=== PATIENT | female | born 1960 ===

== ENCOUNTER 2017-06-21 11:50 | Emergency (ER) | payer OTHER ==
[2017-06-21] MEDS ORDERED: MAG HYDROX/AL HYDROX/SIMETH 30 ML, Lidocaine 2%Visc 15ml 20 MG, PHENobarb/HYOSCY/ATROPI... PO ONE ×3 (12:03)
--- NOTE | 2017-06-21 12:09 | ED Physician Documentation ---
General Adult - HISTORIAN Historian: patient - HPI Stated Complaint: chest pain Chief Complaint: General Adult Onset: hours Timing: still present Severity: moderate Further Comments: yes (Pt is a 56 yo aa female who has been having chest pain since last evening. Pt initially thought that cp was due to heartburn, and she took Tums and other antacids, but without relief. Pt has strong family hx cad, with brothers with FL's in their 50's. Pain remained in central chest and did not radiate. No n/v/diaphoresis. Pt has dx of HTN, but does not take any meds for it. Pt had been rx'd Lisinopril 10 mg po qd at one time. Pt presents with SBP in 180's.) - ROS CONST: no problems EYES/ENT: none CVS/RESP: chest pain GI/: none MS/SKIN/LYMPH: none - PAST HX Past History: hypertension Surgeries/Procedures: hysterectomy, other (orthopedic) Allergies/Adverse Reactions: Allergies Allergy/AdvReac Type Severity Reaction Status Date / Time No Known Drug Allergies Allergy Verified 06/21/17 12:11 Home Medications: Ambulatory Orders Medication Instructions Recorded NK [NK] 06/21/17 - SOCIAL HX Smoking History: cigarettes - FAMILY HX Family History: Yes (brothers with FL's in 50's) - REVIEWED ASSESSMENTS Nursing Assessment Reviewed: Yes Vitals Reviewed: Yes Progress - Progress Progress: GI cocktail improved Famotidine 20 mg IV improved Lisinopril 10 po in ER. d/c instructions: May take [id number] Zantac or Pepcid as directed. Rx Lisinopril 10 mg. Take one by mouth once daily for hypertension. Follow up with primary provider in 1 to 2 weeks about high blood pressure and heartburn. - EKG/XRAY/CT EKG: NSR (HR=85, LVH by voltage) XRAY: chest (neg) ED Results Lab/Radiology - Orders Orders: ED Orders Category Date Time Status Continuous EKG monitoring Q30M Care 06/21/17 12:02 Active Continuous Pulse Oximetry Q30M Care 06/21/17 12:[address] IV Lock 1T Care 06/21/17 12:02 Active CHEST 1 VIEW [RAD] Stat Exams 06/21/17 12:02 Ordered CBC/PLATELET/DIFF Routine Lab 06/21/17 12:05 Received CMP Routine Lab 06/21/17 12:05 Received CREATINE KINASE Routine Lab 06/21/17 12:05 Received TROPONIN I (cTnI) Stat Lab 06/21/17 12:05 Received Mag Hydrox/Al Hydrox/Simeth [Mylanta] 30 ml Med 06/21/17 12:03 Discontinued Lidocaine 2%Visc 15ml [Xylocaine] 20 mg PHENobarb/HYOSCY/ATROPINE/SCOP [] 10 ml PO NOW Oxygen Daily Oxygen 06/21/17 12:15 Ordered EKG WITH COMPARISON Stat Ther 06/21/17 12:02 Ordered General Adult Physical Exam - PHYSICAL EXAM GENERAL APPEARANCE: mild distress EENT: pharynx normal NECK: normal inspection, supple RESPIRATORY: no resp distress, chest non-tender, breath sounds normal CVS: reg rate & rhythm, heart sounds normal ABDOMEN: soft, no organomegaly, normal bowel sounds BACK: normal inspection, no CVA tenderness SKIN: warm/dry, normal color EXTREMITIES: non-tender, normal range of motion, no evidence of injury, no edema NEURO: oriented X3, motor nml, sensation nml Discharge Clincal Impression: GERD (gastroesophageal reflux disease) Qualifiers: Esophagitis presence: without esophagitis Qualified Code(s): K21.9 - Gastro- esophageal reflux disease without esophagitis HTN (hypertension) Qualifiers: Hypertension type: unspecified Qualified Code(s): I10 - Essential (primary) hypertension Referrals: Primary Doctor,No [Primary Care Provider] - 2 Days Condition: Good Disposition: 01 HOME, SELF-CARE Decision to Admit: NO Decision Time: 13:07
[2017-06-21 12:12] LABS: BASOPHILS % 0.8 (0.0-1.5); EOSINOPHILS % 1.6 % (0.0-6.8); MEAN CORPUSCULAR HEMOGLOBIN 29.3 pg (28.0-34.0); MEAN CORPUSCULAR VOLUME 90.3 fl (80.0-100.0); MONOCYTES % 5.6 % (0.0-11.0); NEUTROPHILS # 2.7 # k/uL (1.4-7.7)
[2017-06-21 12:21] LABS: eGFR (African) > 60; eGFR (Non-African) > 60
[2017-06-21] MEDS ORDERED: MAG HYDROX/AL HYDROX/SIMETH 30 ML UDC PO ONE (12:35)
[2017-06-21] MEDS ORDERED: Lidocaine 2%Visc 15ml 20 MG/ML UDC ONE (12:35)
[2017-06-21] MEDS ORDERED: LISINOPRIL 5 MG TABLET PO ONE (12:41)
[2017-06-21] MEDS ORDERED: FAMOTIDINE/PF 20 MG/2 ML VIAL IVP ONE (12:42)
--- NOTE | 2017-06-21 12:54 | Diagnostic Imaging Report ---
FAVIOLA PETERSEN [facility] [address] [facility] [address] [place] [address]. [id number] Report Submission Date: Jun 21, 2017 12:23:20 PM HONEY PRODUCER Patient Study Name: DICK MANN Date: Jun 21, 2017 12:12:17 PM HONEY PRODUCER Modality Type: CR Gender: F Description: CHEST : 60 Institution: [facility] Physician: FAVIOLA PETERSEN Examination: Portable chest History: Evaluate lungs Comparison exam: None available. Findings: Single view of the chest demonstrates a normal cardiac and mediastinal silhouette. Lung encarnacion without focal infiltrate. No blunting of the costophrenic margins. Osseous structures are appropriate for age. The wall the Impression: No acute pulmonary process. Electronically signed on Jun 21, 2017 12:23:20 PM HONEY PRODUCER by: Phillip LONG
[2017-06-21 13:59] VITALS: BP 189/95
== END 2017-06-21 13:15 | disposition home or self-care (01) ==
LOC: ED 11:50
DX: K21.9 Gastro-esophageal reflux disease without esophagitis (principal); I10 Essential (primary) hypertension
CPT/HCPCS: 71010; 80053; 82550; 84484; 85025; 93005; 96374; 99283; A9270; S0028; S1016

== ENCOUNTER 2018-08-03 11:05 | Emergency (ER) | payer OTHER ==
--- NOTE | 2018-08-03 11:09 | ED Physician Documentation ---
General Adult - HISTORIAN Historian: patient - HPI Stated Complaint: abdominal pain Chief Complaint: Abdominal Pain Onset: days ago (3) Timing: still present Further Comments: yes (she reports a history of pancreatitis since 2013. She states in the last three days she has had increasing abdominal pain and diarrhea. Denies any fever. She has tried to keep up drinking but she reports she is not eating as much as she was. She has no urinary issues. Denies any other complaints) - ROS CONST: no problems CVS/RESP: none GI/: abdominal pain, diarrhea. denies: vomiting, nausea MS/SKIN/LYMPH: none - PAST HX Past History: hypertension Allergies/Adverse Reactions: Allergies Allergy/AdvReac Type Severity Reaction Status Date / Time No Known Drug Allergies Allergy Verified 06/21/17 12:11 Home Medications: Ambulatory Orders Medication Instructions Recorded Zolpidem Tartrate 10 mg PO HS 08/03/18 amLODIPine BESYLATE [Norvasc] 10 mg PO 0900 08/03/18 - SOCIAL HX Smoking History: non-smoker Alcohol Use: occasionally Drug Use: none - FAMILY HX Family History: No - VITAL SIGNS Vital Signs: Vital Signs Temp Pulse Resp BP Pulse Ox 189/95 06/21/17 13:15 - REVIEWED ASSESSMENTS Nursing Assessment Reviewed: Yes Vitals Reviewed: Yes ED Results Lab/Radiology - Radiology Radiology Impressions: CT abdomen and pelvis with contrast. History: Left upper quadrant pain. Technique: Transaxial computed tomographic images of the abdomen and pelvis were obtained with contrast according to standard protocol. Findings: Lung bases clear. The heart size is normal. The liver, gallbladder, pancreas, spleen, and adrenal glands are normal. Small 1 cm left renal cyst is present. No bowel wall thickening or dilation is identified. There is however mild increased fluid within several distal small bowel loops and colon suggesting gastroenteritis. Normal appendix. Enhanced vascular structures are normal. No adenopathy is present. The bladder is normal. There is no free fluid. The osseous structures are normal. Impression: 1. Mild increased fluid within the colon and several small bowel loops suggesting gastroenteritis. 2. Normal appendix. 3. No free fluid. Electronically signed on Aug 03, 2018 12:41:11 PM DIRECT CARE COUNSELOR by: Sohail Quesada General Adult Physical Exam - PHYSICAL EXAM GENERAL APPEARANCE: mild distress EENT: eye inspection normal, no signs of dehydration NECK: normal inspection RESPIRATORY: no resp distress, chest non-tender, breath sounds normal CVS: reg rate & rhythm, heart sounds normal ABDOMEN: soft, no distension, tenderness (over LUQ ) BACK: normal inspection SKIN: warm/dry EXTREMITIES: non-tender, no edema NEURO: oriented X3, CN's nml as tested, motor nml Discharge Clincal Impression: Gastroenteritis Referrals: Julieta Cobian, PRN [Primary Care Provider] - 2 Days Comments: 1. clear fluids x 12 hours 2. Increased diet to tolerate 3. Zofran 4 mg ODT take 1 by mouth every 8 hours as needed for nausea 4. Follow up with PCP in 2 days 5. Return to ER for concerns Condition: Stable Disposition: 01 HOME, SELF-CARE Decision to Admit: NO Date of Decison to Admit: 08/03/18 Decision Time: 12:57
[2018-08-03] MEDS ORDERED: KETOROLAC TROMETHAMINE 30 MG/1ML VIAL IVP ONE (11:25)
[2018-08-03] MEDS ORDERED: 0.9 % SODIUM CHLORIDE 1,000 ML IV ONE (11:26)
[2018-08-03 11:45] LABS: MEAN CORPUSCULAR HEMOGLOBIN 28.9 pg (28.0-34.0)
[2018-08-03 11:46] LABS: BASOPHILS % 0.6 (0.0-1.5); EOSINOPHILS % 1.2 % (0.0-6.8); MONOCYTES % 9.2 % (0.0-11.0); NEUTROPHILS # 5.5 # k/uL (1.4-7.7)
[2018-08-03 11:55] LABS: eGFR (Non-African) > 60
[2018-08-03 13:09] VITALS: BP 148/74
[2018-08-03 13:09] LABS: APPEARANCE,URINE CLEAR (CLEAR); COLOR,URINE YELLOW (YELLOW)
[2018-08-03 13:10] LABS: OCCULT BLOOD,URINE NEGATIVE (NEGATIVE); PH URINE 6.5 (5.0 - 8.0); UROBILINOGEN URINE 0.2 Eu (0.2-1.0)
--- NOTE | 2018-08-03 18:23 | Diagnostic Imaging Report ---
TOI OSPINA [facility] [address] [facility] [address] [place], [place]. [address] Report Submission Date: Aug 03, 2018 12:41:11 PM CLOTH CARRIER Patient Study Name: DICK MANN Date: Aug 03, 2018 12:12:57 PM CLOTH CARRIER Modality Type: CT\SR Gender: F Description: CT ABD PELVIS W/ CON : 60 Institution: [facility] Physician: TOI OSPINA CT abdomen and pelvis with contrast. History: Left upper quadrant pain. Technique: Transaxial computed tomographic images of the abdomen and pelvis were obtained with contrast according to standard protocol. Findings: Lung bases clear. The heart size is normal. The liver, gallbladder, pancreas, spleen, and adrenal glands are normal. Small 1 cm left renal cyst is present. No bowel wall thickening or dilation is identified. There is however mild increased fluid within several distal small bowel loops and colon suggesting gastroenteritis. Normal appendix. Enhanced vascular structures are normal. No adenopathy is present. The bladder is normal. There is no free fluid. The osseous structures are normal. Impression: 1. Mild increased fluid within the colon and several small bowel loops suggesting gastroenteritis. 2. Normal appendix. 3. No free fluid. Electronically signed on Aug 03, 2018 12:41:11 PM CLOTH CARRIER by: Sohail LONG
== END 2018-08-03 13:08 | disposition home or self-care (01) ==
LOC: ED 11:05
DX: K52.9 Noninfective gastroenteritis and colitis, unspecified (principal)
CPT/HCPCS: 36415; 74177; 80053; 81002; 83690; 85025; 96374; 99283; 99284; J1885; J7030; Q9967; S1016